=== PATIENT | male | born 1960 | race Caucasian/White ===

== ENCOUNTER 2022-12-01 09:41 | Inpatient (IN) | payer MEDICARE, MEDICAID ==
[~2022-12-01] VITALS: Ht 180.3 cm; Wt 84.1 kg
[2022-12-01] MEDS ORDERED: VENL75CA47 PO (09:54)
[2022-12-01] MEDS ORDERED: VENL50TA2 PO (09:54)
[2022-12-01 10:37] LABS: BASO # 0.1 10^3/uL (0.0-0.2); EOS # 0.2 10^3/uL (0.0-0.5); EOS % 3.5 % (0.0-3.0); HEMATOCRIT 38.8 % (42.0-52.0); HEMOGLOBIN 13.2 g/dl (13.5-17.5); LYMPH # 1.5 10^3/uL (1.5-5.0); LYMPH % 22.4 % (24.0-44.0); MEAN CORPUSCULAR HEMOGLOBIN 31.2 pg (27.0-33.0); MEAN CORPUSCULAR VOLUME 91.7 fl (80.0-96.0); MONO # 0.9 10^3/uL (0.0-0.8); MONO % 13.2 % (2.0-8.0); NEUTROPHILS # 4.1 10^3/uL (1.5-8.5); NEUTROPHILS % 59.6 % (36.0-66.0); PLATELET COUNT, AUTOMATED 336 10^3/uL (150-450); RED BLOOD COUNT 4.23 10^6/uL (4.30-6.10); WHITE BLOOD COUNT 6.9 10^3/uL (4.0-10.0)
[2022-12-01 10:58] LABS: LIPASE 27 U/L (12-53)
[2022-12-01 11:00] LABS: ALBUMIN 3.7 G/DL (3.2-5.2); ALKALINE PHOSPHATASE 97 U/L (46-116); ALT/SGPT 18 U/L (7.0-40); AST/SGOT 25 U/L (<34); BILIRUBIN,DIRECT 0.3 MG/DL (<0.4); BILIRUBIN,TOTAL 0.7 MG/DL (0.3-1.2); BLOOD UREA NITROGEN 8 MG/DL (9-23); CALCIUM LEVEL 8.8 MG/DL (8.3-10.6); CARBON DIOXIDE LEVEL 28 MMOL/L (20-31); CHLORIDE LEVEL 102 MMOL/L (98-107); CREATININE FOR GFR 0.69 MG/DL (0.70-1.30); GLOMERULAR FILTRATION RATE > 60.0 (>49); GLUCOSE, FASTING 91 MG/DL (74-106); SODIUM LEVEL 138 MMOL/L (136-145); TOTAL PROTEIN 6.7 G/DL (5.7-8.2)
[2022-12-01 11:01] LABS: THYROID STIMULATING HORMONE 4.813 uIU/ML (0.55-4.78)
[2022-12-01 11:03] LABS: FREE T4 1.24 NG/DL (0.89-1.76)
[2022-12-01 11:07] LABS: CPK CREATINE PHOSPHOKINASE 269 U/L (46-171); MB/CK RELATIVE INDEX 1.85 (< OR =4)
[2022-12-01 11:49] LABS: RSV AMPLIFICATION NEGATIVE (NEGATIVE)
[2022-12-01 12:15] LABS: CK-MB VALUE MASS 4.1 NG/ML (<3.6)
[2022-12-01 12:16] LABS: MB/CK RELATIVE INDEX 1.59 (< OR =4)
[2022-12-01] MEDS ORDERED: LORazepam 2 MG TAB PO STA (12:46)
[2022-12-01] MEDS ORDERED: NS 1,000 ML IV ONE (12:50)
[2022-12-01 14:46] LABS: APPEARANCE, URINE CLEAR (CLEAR); BACTERIA, URINE AUTO NEGATIVE (NEGATIVE); BILIRUBIN, URINE AUTO NEGATIVE (NEGATIVE); BLOOD, URINE BLOOD NEGATIVE (NEGATIVE); COLOR, URINE YELLOW (YELLOW); GLUCOSE, URINE (UA) AUTO NEGATIVE (NEGATIVE); KETONE, URINE AUTO NEGATIVE (NEGATIVE); LEUKOCYTE ESTERASE, URINE AUTO NEGATIVE (NEGATIVE); NITRITE, URINE AUTO NEGATIVE (NEGATIVE); PROTEIN, URINE AUTO NEGATIVE (NEGATIVE); RBC, URINE AUTO 0 /HPF (0-3); SPECIFIC GRAVITY URINE AUTO 1.009 (1.002-1.035); SQUAMOUS EPITHELIAL CELL UR AU 0 /HPF (0-6); UROBILINOGEN, URINE AUTO 0.2 mg/dL (0.0-2.0); WBC, URINE AUTO 1 /HPF (0-3)
[2022-12-01 15:10] LABS: BARBITURATES URINE NEGATIVE (NEGATIVE); COCAINE METABOLITE URINE NEGATIVE (NEGATIVE); PHENCYCLIDINE URINE NEGATIVE (NEGATIVE)
[2022-12-01 15:11] LABS: METHADONE URINE NEGATIVE (NEGATIVE); OPIATES URINE NEGATIVE (NEGATIVE)
[2022-12-01 15:12] LABS: AMPHETAMINES LEVEL URINE POSITIVE (NEGATIVE); BENZODIAZEPINES URINE POSITIVE (NEGATIVE); CANNABINOIDS URINE POSITIVE (NEGATIVE)
[2022-12-01] MEDS ORDERED: LORazepam 2 MG/ML 1ML VIAL IM STA (16:06)
[2022-12-01] MEDS ORDERED: OLANZapine INTRAMUSCULAR 10MG VIAL IM ONE (16:10)
[2022-12-01] MEDS ORDERED: OLANZapine ORAL DISINTEGRATING TAB 5MG PO ONE (16:30)
[2022-12-01] MEDS ORDERED: IBUPROFEN 400MG TAB PO PRN ×2 (20:30)
[2022-12-01] MEDS ORDERED: ACETAMINOPHEN TAB 650MG DOSE (2X325MG) PO PRN ×2 (20:30)
[2022-12-01] MEDS ORDERED: MOM 30ML SUSPENSION UDC PO PRN ×2 (20:30)
[2022-12-01] MEDS ORDERED: traZODone 50 MG TAB PO PRN ×2 (20:30)
[2022-12-01] MEDS ORDERED: MAALOX 30 ML SUSP *UDC PO PRN ×2 (20:30)
[2022-12-01] MEDS ORDERED: diphenhydrAMINE 25MG CAP PO PRN (20:30)
[2022-12-01 22:03] VITALS: BP 155/97; TEMP 96.7; O2SAT 96
[2022-12-01 23:15] LABS: ETHYL ALCOHOL (ETHANOL) < 0.003 % (0.000-0.010)
[2022-12-01 23:17] LABS: ACETAMINOPHEN LEVEL < 2.0 UG/ML (10.0-20.0); SALICYLATE LEVEL < 3.0 MG/DL (<30)
[2022-12-02 00:20] VITALS: BP 135/100; TEMP 96.2; O2SAT 98
[2022-12-02 06:57] VITALS: TEMP 97.1; O2SAT 98
[2022-12-02] MEDS ORDERED: VENLAFAXINE **XR** 75MG CAPSULE PO SCH (09:00)
[2022-12-02] MEDS ORDERED: VENLAFAXINE 25 MG TAB PO SCH (09:00)
[2022-12-02] MEDS: VENLAFAXINE **XR** 75MG CAPSULE PO SCH (12:48)
[2022-12-02 18:03] VITALS: BP 118/87; TEMP 97.4; O2SAT 100
[2022-12-03 07:04] VITALS: BP 135/82; TEMP 97.7; O2SAT 98
[2022-12-03] MEDS: diphenhydrAMINE 25MG CAP PO PRN (08:05)
[2022-12-03] MEDS: VENLAFAXINE **XR** 75MG CAPSULE PO SCH (08:05)
[2022-12-03] MEDS: NICOTINE 21MG/24HR 1 EA TRANSDERMAL TD PRN (09:18)
[2022-12-03 18:00] VITALS: BP 145/74; TEMP 97
[2022-12-04 06:10] VITALS: BP 131/72; TEMP 97.1; O2SAT 96
[2022-12-04] MEDS: VENLAFAXINE **XR** 75MG CAPSULE PO SCH (08:42)
[2022-12-04] MEDS: NICOTINE 21MG/24HR 1 EA TRANSDERMAL TD PRN (08:43)
[2022-12-04] MEDS: OLANZapine 5 MG TAB PO PRN (10:35)
[2022-12-04 18:00] VITALS: BP 123/66; TEMP 98.4; O2SAT 94
[2022-12-04] MEDS: PRAZOSIN 1 MG CAP PO SCH (21:41)
[2022-12-04] MEDS: QUEtiapine FUMARATE 50MG TAB PO SCH (21:41)
[2022-12-05 06:23] VITALS: BP 145/92; TEMP 97.8; O2SAT 95
[2022-12-05] MEDS: VENLAFAXINE **XR** 75MG CAPSULE PO SCH (09:12)
[2022-12-05] MEDS: NICOTINE 21MG/24HR 1 EA TRANSDERMAL TD PRN (09:15)
[2022-12-05] MEDS: diphenhydrAMINE 25MG CAP PO PRN (11:47)
[2022-12-05] MEDS: OLANZapine 5 MG TAB PO PRN (11:47)
[2022-12-05] MEDS: LIDOCAINE 5% (LIDODERM) PATCH TD SCH (11:48)
[2022-12-05 18:00] VITALS: BP 109/66; TEMP 98.1; O2SAT 93
[2022-12-05] MEDS: QUEtiapine FUMARATE 50MG TAB PO SCH (21:04)
[2022-12-05] MEDS: PRAZOSIN 1 MG CAP PO SCH (21:05)
[2022-12-06 05:59] VITALS: BP 139/93; TEMP 97; O2SAT 95
[2022-12-06] MEDS: LIDOCAINE 5% (LIDODERM) PATCH TD SCH (09:19)
[2022-12-06] MEDS: VENLAFAXINE **XR** 75MG CAPSULE PO SCH (09:19)
[2022-12-06] MEDS: NICOTINE 21MG/24HR 1 EA TRANSDERMAL TD PRN (09:19)
[2022-12-06] MEDS: OLANZapine 5 MG TAB PO PRN (11:39)
[2022-12-06] MEDS: diphenhydrAMINE 25MG CAP PO PRN (13:37)
[2022-12-06] MEDS: GABAPENTIN 100 MG CAP PO SCH ×2 (13:51→20:54)
[2022-12-06 17:54] VITALS: BP 110/67; TEMP 97.3; O2SAT 98
[2022-12-06] MEDS: QUEtiapine FUMARATE 50MG TAB PO SCH (20:54)
[2022-12-06] MEDS: PRAZOSIN 1 MG CAP PO SCH (20:55)
[2022-12-07 06:44] VITALS: BP 134/62; TEMP 97.2; O2SAT 100
[2022-12-07] MEDS: GABAPENTIN 100 MG CAP PO SCH ×2 (08:35→20:55)
[2022-12-07] MEDS: VENLAFAXINE **XR** 75MG CAPSULE PO SCH (08:35)
[2022-12-07] MEDS: LIDOCAINE 5% (LIDODERM) PATCH TD SCH (08:35)
[2022-12-07] MEDS: NICOTINE 21MG/24HR 1 EA TRANSDERMAL TD PRN (08:37)
[2022-12-07] MEDS: OLANZapine 5 MG TAB PO PRN (09:43)
[2022-12-07] MEDS: diphenhydrAMINE 25MG CAP PO PRN (16:19)
[2022-12-07 16:27] VITALS: BP 118/72; TEMP 97.6; O2SAT 95
[2022-12-07 20:54] VITALS: BP 148/82
[2022-12-07 20:55] VITALS: BP 148/82
[2022-12-07] MEDS: PRAZOSIN 1 MG CAP PO SCH (20:55)
[2022-12-07] MEDS: QUEtiapine FUMARATE 50MG TAB PO SCH (20:55)
[2022-12-08 06:48] VITALS: BP 117/71; TEMP 96.9; O2SAT 95
[2022-12-08] MEDS: LIDOCAINE 5% (LIDODERM) PATCH TD SCH (09:00)
[2022-12-08] MEDS: NICOTINE 21MG/24HR 1 EA TRANSDERMAL TD PRN (09:48)
[2022-12-08] MEDS: VENLAFAXINE **XR** 75MG CAPSULE PO SCH (09:49)
[2022-12-08] MEDS: GABAPENTIN 100 MG CAP PO SCH (09:49)
[2022-12-08] MEDS: OLANZapine 5 MG TAB PO PRN (09:54)
[2022-12-08] MEDS ORDERED: GABA-1171 PO (10:30)
[2022-12-08] MEDS ORDERED: LIDO5TD TD (10:30)
[2022-12-08] MEDS ORDERED: NICO21PAT TD (10:30)
[2022-12-08] MEDS ORDERED: VENL75CA47 PO (10:30)
[2022-12-08] MEDS ORDERED: MINI1CAP PO (10:30)
[2022-12-08] MEDS ORDERED: QUET50TA4 PO (10:30)
== END 2022-12-08 12:12 | disposition home or self-care (01) | DRG 882 ==
LOC: EDBD 09:41 → M ED 09:41 → M ED INP 20:27 → M PSY 21:36
PROVIDERS: ADMIT Student in an Organized Health Care Education/Training Program; ATTEND Student in an Organized Health Care Education/Training Program
DX: F43.9 Reaction to severe stress, unspecified (principal); F12.151 Cannabis abuse with psychotic disorder with hallucinations; Z56.0 Unemployment, unspecified; Z79.899 Other long term (current) drug therapy; F32.A Depression, unspecified; M54.50 Low back pain, unspecified

== ENCOUNTER 2023-02-20 18:19 | Emergency (ER) | payer MEDICARE, MEDICAID ==
[~2023-02-20] VITALS: Ht 180.3 cm; Wt 89.9 kg
[~2023-02-20 18:19] MED LIST: GABA-1171 PO; LIDO5TD TD; MINI1CAP PO; NICO21PAT TD; QUET50TA4 PO; VENL50TA2 PO; VENL75CA47 PO
[2023-02-20] MEDS ORDERED: WELLTAB40 PO (18:29)
[2023-02-20] MEDS ORDERED: CYMB1CAP5 PO (18:29)
[2023-02-20 20:36] LABS: HEMATOCRIT 37.2 % (42.0-52.0); HEMOGLOBIN 12.8 g/dl (13.5-17.5); MEAN CORPUSCULAR HEMOGLOBIN 30.9 pg (27.0-33.0); MEAN CORPUSCULAR HGB CONC 34.4 g/dl (32.0-36.5); MEAN CORPUSCULAR VOLUME 89.9 fl (80.0-96.0); PLATELET COUNT, AUTOMATED 371 10^3/uL (150-450); RED BLOOD COUNT 4.14 10^6/uL (4.30-6.10); WHITE BLOOD COUNT 6.8 10^3/uL (4.0-10.0)
[2023-02-20 20:55] LABS: AMPHETAMINES LEVEL URINE NEGATIVE (NEGATIVE); BARBITURATES URINE NEGATIVE (NEGATIVE); PHENCYCLIDINE URINE NEGATIVE (NEGATIVE)
[2023-02-20 20:56] LABS: BENZODIAZEPINES URINE NEGATIVE (NEGATIVE); CANNABINOIDS URINE NEGATIVE (NEGATIVE); COCAINE METABOLITE URINE NEGATIVE (NEGATIVE); METHADONE URINE NEGATIVE (NEGATIVE); OPIATES URINE NEGATIVE (NEGATIVE)
[2023-02-20 20:57] LABS: ETHYL ALCOHOL (ETHANOL) < 0.003 % (0.000-0.010)
[2023-02-20 20:59] LABS: ACETAMINOPHEN LEVEL < 2.0 UG/ML (10.0-20.0); ALBUMIN 3.8 G/DL (3.2-5.2); ALKALINE PHOSPHATASE 85 U/L (46-116); ALT/SGPT 34 U/L (7.0-40); AST/SGOT 28 U/L (<34); BILIRUBIN,DIRECT 0.3 MG/DL (<0.4); BILIRUBIN,TOTAL 0.7 MG/DL (0.3-1.2); BLOOD UREA NITROGEN 17 MG/DL (9-23); CALCIUM LEVEL 8.9 MG/DL (8.3-10.6); CARBON DIOXIDE LEVEL 27 MMOL/L (20-31); CHLORIDE LEVEL 105 MMOL/L (98-107); CREATININE FOR GFR 0.88 MG/DL (0.70-1.30); GLOMERULAR FILTRATION RATE > 60.0 (>49); GLUCOSE, FASTING 91 MG/DL (74-106); SALICYLATE LEVEL < 3.0 MG/DL (<30); SODIUM LEVEL 140 MMOL/L (136-145)
[2023-02-20 21:02] LABS: THYROID STIMULATING HORMONE 8.534 uIU/ML (0.55-4.78)
[2023-02-20 23:44] LABS: APPEARANCE, URINE CLEAR (CLEAR); BACTERIA, URINE AUTO NEGATIVE (NEGATIVE); BILIRUBIN, URINE AUTO NEGATIVE (NEGATIVE); BLOOD, URINE BLOOD NEGATIVE (NEGATIVE); COLOR, URINE YELLOW (YELLOW); GLUCOSE, URINE (UA) AUTO NEGATIVE (NEGATIVE); KETONE, URINE AUTO NEGATIVE (NEGATIVE); LEUKOCYTE ESTERASE, URINE AUTO NEGATIVE (NEGATIVE); NITRITE, URINE AUTO NEGATIVE (NEGATIVE); PROTEIN, URINE AUTO NEGATIVE (NEGATIVE); RBC, URINE AUTO 0 /HPF (0-3); SPECIFIC GRAVITY URINE AUTO 1.011 (1.002-1.035); SQUAMOUS EPITHELIAL CELL UR AU 0 /HPF (0-6); UROBILINOGEN, URINE AUTO 0.2 mg/dL (0.0-2.0); WBC, URINE AUTO 3 /HPF (0-3)
[2023-02-21] MEDS ORDERED: LEVOTHYROXINE 25MCG TABLET (0.025MG) PO SCH (06:00)
[2023-02-21] MEDS ORDERED: BUPR150T12 PO (06:13)
[2023-02-21] MEDS ORDERED: LEVO25TA5 PO (06:15)
[2023-02-21] MEDS ORDERED: VITA100093 PO (06:15)
[2023-02-21] MEDS ORDERED: GABA-284 PO (06:15)
[2023-02-21] MEDS ORDERED: AMLO1TAB24 PO (06:15)
[2023-02-21] MEDS ORDERED: QUET100T2 PO (06:15)
[2023-02-21] MEDS ORDERED: PRAZ1CAP PO (06:15)
[2023-02-21] MEDS ORDERED: NAPR-885 PO (06:15)
[2023-02-21] MEDS ORDERED: HOME MED LIST COMPLETE! XX SCH (06:20)
[2023-02-21] MEDS ORDERED: GABAPENTIN 400MG CAP PO SCH (09:00)
[2023-02-21] MEDS ORDERED: GABAPENTIN 100 MG CAP PO SCH (09:00)
[2023-02-21] MEDS ORDERED: amLODIPine 5 MG TAB PO SCH (09:00)
[2023-02-21] MEDS ORDERED: buPROPion **XL** TABLET 150MG (WELLBUTRIN XL) PO SCH (09:00)
[2023-02-21] MEDS: DULoxetine 30MG CAPSULE (CYMBALTA) PO SCH ×2 (09:24→14:31)
[2023-02-21 09:27] VITALS: BP 117/77
[2023-02-21 12:27] VITALS: BP 136/91; TEMP 97.2; O2SAT 98
[2023-02-21] MEDS ORDERED: QUEtiapine FUMARATE 100 MG TAB PO SCH (21:00)
[2023-02-21] MEDS ORDERED: QUEtiapine FUMARATE 50MG TAB PO SCH (21:00)
[2023-02-21] MEDS ORDERED: PRAZOSIN 1 MG CAP PO SCH (21:00)
== END 2023-02-21 15:47 | disposition home or self-care (01) ==
LOC: M ED 18:19
DX: F19.14 Other psychoactive substance abuse with psychoactive substance-induced mood disorder (principal); F32.A Depression, unspecified; F17.200 Nicotine dependence, unspecified, uncomplicated

== ENCOUNTER 2024-12-17 16:43 | Emergency (ER) | payer MEDICARE, MEDICAID ==
[~2024-12-17] VITALS: Ht 177.8 cm; Wt 84.9 kg
[~2024-12-17 16:43] MED LIST changes: +AMLO1TAB24 PO; +BUPR150T12 PO; +CYMB1CAP5 PO; +GABA-284 PO; +LEVO25TA5 PO; +NAPR-885 PO; +PRAZ1CAP PO; +QUET100T2 PO; +VITA100093 PO; +WELLTAB40 PO
[2024-12-17 20:44] LABS: PLATELET COUNT, AUTOMATED 365 10^3/uL (150-450)
[2024-12-17 21:25] LABS: ETHYL ALCOHOL (ETHANOL) < 0.003 % (0.000-0.010)
[2024-12-17 21:26] LABS: AMPHETAMINES LEVEL URINE POSITIVE (NEGATIVE); BARBITURATES URINE NEGATIVE (NEGATIVE); BENZODIAZEPINES URINE NEGATIVE (NEGATIVE); CANNABINOIDS URINE POSITIVE (NEGATIVE); COCAINE METABOLITE URINE NEGATIVE (NEGATIVE); METHADONE URINE NEGATIVE (NEGATIVE); OPIATES URINE NEGATIVE (NEGATIVE); PHENCYCLIDINE URINE NEGATIVE (NEGATIVE)
[2024-12-17 21:27] LABS: ALT/SGPT 22 U/L (7.0-40); AST/SGOT 19 U/L (<34); CALCIUM LEVEL 10.1 MG/DL (8.3-10.6); CARBON DIOXIDE LEVEL 31 MMOL/L (20-31); CHLORIDE LEVEL 100 MMOL/L (98-107); CREATININE FOR GFR 0.83 MG/DL (0.70-1.30); GLOMERULAR FILTRATION RATE > 90.0 (>49); POTASSIUM SERUM 4.5 MMOL/L (3.5-5.1); SALICYLATE LEVEL < 3.0 MG/DL (<30); SODIUM LEVEL 139 MMOL/L (136-145)
[2024-12-17 21:28] LABS: MAGNESIUM LEVEL 2.3 MG/DL (1.8-2.4)
[2024-12-17 21:30] LABS: CPK CREATINE PHOSPHOKINASE 71.0 U/L (46-171)
[2024-12-18] MEDS ORDERED: PROP20TA72 PO (09:59)
[2024-12-18] MEDS ORDERED: RISP-105 PO (10:01)
[2024-12-18] MEDS ORDERED: TAMS1CAP17 PO (10:02)
[2024-12-18] MEDS ORDERED: VENL150C43 PO (10:02)
[2024-12-18] MEDS ORDERED: AMPH1CAP5 PO (10:03)
[2024-12-18] MEDS ORDERED: HOME MED LIST COMPLETE! XX SCH (10:05)
[2024-12-18] MEDS ORDERED: PROPRANOLOL 20 MG TAB PO PRN (11:35)
[2024-12-18] MEDS: VENLAFAXINE **XR** 75MG CAPSULE PO SCH (11:44)
[2024-12-18] MEDS: TAMSULOSIN 0.4 MG CAP PO SCH (11:44)
[2024-12-18] MEDS: DEXTROAMPHETAMINE/AMPHETAMINE 5 MG *ER* CAPSULE PO SCH (11:45)
[2024-12-18] MEDS ORDERED: OVERDOSE RESCUE KIT XX SCH (13:35)
[2024-12-18 14:18] VITALS: BP 165/93; TEMP 97; O2SAT 97
[2024-12-18] MEDS ORDERED: PRAZOSIN 1 MG CAP PO SCH (21:00)
[2024-12-18] MEDS ORDERED: risperiDONE 0.5 MG TAB PO SCH (21:00)
== END 2024-12-18 14:28 | disposition home or self-care (01) ==
LOC: M ED 16:43
DX: F25.9 Schizoaffective disorder, unspecified (principal); I10 Essential (primary) hypertension; I25.119 Atherosclerotic heart disease of native coronary artery with unspecified angina pectoris; B18.2 Chronic viral hepatitis C; F17.210 Nicotine dependence, cigarettes, uncomplicated; Z79.899 Other long term (current) drug therapy

== ENCOUNTER 2024-12-24 12:04 | Emergency (ER) | payer MEDICARE, MEDICAID ==
[~2024-12-24] VITALS: Ht 177.8 cm; Wt 85.3 kg
[~2024-12-24 12:04] MED LIST changes: +AMPH1CAP5 PO; +PROP20TA72 PO; +RISP-105 PO; +TAMS1CAP17 PO; +VENL150C43 PO
[2024-12-24 12:06] VITALS: BP 131/91; TEMP 97.7; O2SAT 99
[2024-12-25] MEDS ORDERED: HYDR50CA2 PO (14:15)
== END 2024-12-24 14:58 | disposition left against medical advice (07) ==
LOC: M ED 12:04
DX: Z53.21 Procedure and treatment not carried out due to patient leaving prior to being seen by health care provider (principal)

== ENCOUNTER 2024-12-25 10:52 | Inpatient (IN) | payer MEDICARE, MEDICAID ==
[~2024-12-25] VITALS: Ht 177.8 cm; Wt 85.4 kg
[2024-12-25] MEDS: NICOTINE 14 MG/24 HR TRANSDERMAL TD SCH (09:00)
[2024-12-25 11:35] LABS: PLATELET COUNT, AUTOMATED 342 10^3/uL (150-450)
[2024-12-25] MEDS: NICOTINE 21 MG/24 HR 1 EA TRANSDERMAL TD ONE (11:56)
[2024-12-25 12:04] LABS: ETHYL ALCOHOL (ETHANOL) < 0.003 % (0.000-0.010)
[2024-12-25 12:06] LABS: SALICYLATE LEVEL < 3.0 MG/DL (<30)
[2024-12-25 12:11] LABS: BARBITURATES URINE NEGATIVE (NEGATIVE); COCAINE METABOLITE URINE NEGATIVE (NEGATIVE); METHADONE URINE NEGATIVE (NEGATIVE); OPIATES URINE NEGATIVE (NEGATIVE); PHENCYCLIDINE URINE NEGATIVE (NEGATIVE)
[2024-12-25 12:12] LABS: BENZODIAZEPINES URINE NEGATIVE (NEGATIVE)
[2024-12-25 12:21] LABS: ALT/SGPT 27 U/L (7.0-40); AST/SGOT 23 U/L (<34); CALCIUM LEVEL 8.6 MG/DL (8.3-10.6); CARBON DIOXIDE LEVEL 26 MMOL/L (20-31); CHLORIDE LEVEL 100 MMOL/L (98-107); CREATININE FOR GFR 0.61 MG/DL (0.70-1.30); GLOMERULAR FILTRATION RATE > 90.0 (>49); POTASSIUM SERUM 3.7 MMOL/L (3.5-5.1); SODIUM LEVEL 138 MMOL/L (136-145)
[2024-12-25 12:21] LABS: AMPHETAMINES LEVEL URINE POSITIVE (NEGATIVE); CANNABINOIDS URINE POSITIVE (NEGATIVE)
[2024-12-25] MEDS ORDERED: HYDR50CA2 PO (14:15)
[2024-12-25] MEDS ORDERED: HOME MED LIST COMPLETE! XX SCH (14:15)
[2024-12-25] MEDS ORDERED: MAALOX 30 ML SUSP *UDC PO PRN (14:50)
[2024-12-25] MEDS ORDERED: OLANZapine 5 MG TAB PO PRN (14:50)
[2024-12-25] MEDS ORDERED: ACETAMINOPHEN 325 MG TAB PO PRN (14:50)
[2024-12-25] MEDS ORDERED: LORazepam 1 MG TAB PO PRN (14:50)
[2024-12-25] MEDS ORDERED: IBUPROFEN 400 MG TAB PO PRN (14:50)
[2024-12-25] MEDS ORDERED: MOM 30 ML SUSPENSION UDC PO PRN (14:50)
[2024-12-25] MEDS ORDERED: traZODone 50 MG TAB PO PRN (14:50)
[2024-12-25] MEDS ORDERED: HALOPERIDOL 5 MG TAB PO PRN (14:50)
[2024-12-25] MEDS: VENLAFAXINE **XR** 75MG CAPSULE PO SCH (15:30)
[2024-12-25 16:30] VITALS: BP 138/91; TEMP 97.7; O2SAT 96
[2024-12-25] MEDS: RISPERIDONE 1 MG TAB PO SCH (21:18)
[2024-12-25] MEDS: PRAZOSIN 1 MG CAP PO SCH (21:18)
[2024-12-26 06:30] VITALS: BP 136/86; TEMP 98; O2SAT 95
[2024-12-26] MEDS: TAMSULOSIN 0.4 MG CAP PO SCH (08:03)
[2024-12-26] MEDS: PROPRANOLOL 20 MG TAB PO PRN (12:26)
[2024-12-26] MEDS: DEXTROAMPHETAMINE/AMPHETAMINE 5 MG *ER* CAPSULE PO SCH (13:01)
[2024-12-26 14:38] VITALS: BP 138/95; TEMP 97; O2SAT 98
[2024-12-27 06:28] VITALS: BP 113/68; TEMP 97.1; O2SAT 98
[2024-12-27 15:03] VITALS: BP 124/83; TEMP 97; O2SAT 98
[2024-12-27] MEDS: OLANZapine 5 MG TAB PO SCH (21:45)
[2024-12-28 06:28] VITALS: BP 124/88; TEMP 97.6; O2SAT 96
[2024-12-28] MEDS: OLANZapine 10 MG TAB PO SCH (20:35)
[2024-12-29] MEDS: BENZOCAINE 10% 9 GM TUBE TOP PRN (10:09)
[2024-12-29 15:17] VITALS: BP 128/83; TEMP 97.4; O2SAT 97
[2024-12-30 06:28] VITALS: BP 133/81; TEMP 97.1; O2SAT 96
[2024-12-30 15:01] VITALS: BP 124/79; TEMP 97.7; O2SAT 98
[2024-12-31 06:36] VITALS: BP 137/82; TEMP 97.4; O2SAT 94
[2024-12-31 16:15] VITALS: BP 130/84; TEMP 97.6; O2SAT 97
[2025-01-01 06:19] VITALS: BP 142/80; TEMP 97; O2SAT 100
[2025-01-01 15:42] VITALS: BP 123/79; TEMP 97.8; O2SAT 97
[2025-01-01 20:22] VITALS: BP 123/79
[2025-01-02 06:34] VITALS: BP 111/63; TEMP 97.6; O2SAT 96
[2025-01-02] MEDS ORDERED: PROP20TA72 PO (08:06)
[2025-01-02] MEDS ORDERED: AMPH1CAP5 PO (08:06)
[2025-01-02] MEDS ORDERED: OLAN1TAB20 PO (08:06)
[2025-01-02] MEDS ORDERED: NICO14PA TD (08:06)
[2025-01-02] MEDS ORDERED: VENL150C43 PO (08:06)
[2025-01-02] MEDS ORDERED: TAMS1CAP17 PO (08:06)
[2025-01-02] MEDS ORDERED: HYDR50CA2 PO (08:06)
[2025-01-02] MEDS ORDERED: PRAZ1CAP PO (08:06)
[2025-01-02] MEDS ORDERED: Benzocaine Gel TOP (08:06)
== END 2025-01-02 10:30 | disposition home or self-care (01) | DRG 885 ==
LOC: M ED 10:52 → M ED INP 14:49 → M PSY 16:06
PROVIDERS: ADMIT Internal Medicine; ATTEND Internal Medicine
DX: F25.0 Schizoaffective disorder, bipolar type (principal); R45.851 Suicidal ideations; Z59.00 Homelessness unspecified; F12.90 Cannabis use, unspecified, uncomplicated; F43.10 Post-traumatic stress disorder, unspecified; I10 Essential (primary) hypertension; N40.0 Benign prostatic hyperplasia without lower urinary tract symptoms; F17.200 Nicotine dependence, unspecified, uncomplicated; Z79.899 Other long term (current) drug therapy; Z71.51 Drug abuse counseling and surveillance of drug abuser; Z91.51 Personal history of suicidal behavior

== ENCOUNTER 2025-03-03 05:03 | Inpatient (IN) | payer MEDICARE, MEDICAID ==
[~2025-03-03] VITALS: Ht 177.8 cm; Wt 86.8 kg
[~2025-03-03 05:03] MED LIST changes: +Benzocaine Gel TOP; +HYDR50CA2 PO; +NICO14PA TD; +OLAN1TAB20 PO; +TAMS-18 PO
[2025-03-03 08:06] LABS: PLATELET COUNT, AUTOMATED 372 10^3/uL (150-450)
[2025-03-03 08:35] LABS: ETHYL ALCOHOL (ETHANOL) < 0.003 % (0.000-0.010)
[2025-03-03 08:37] LABS: SALICYLATE LEVEL < 3.0 MG/DL (<30)
[2025-03-03 08:46] LABS: ALT/SGPT 29 U/L (7.0-40); AST/SGOT 42 U/L (<34); CALCIUM LEVEL 9.7 MG/DL (8.3-10.6); CARBON DIOXIDE LEVEL 28 MMOL/L (20-31); CHLORIDE LEVEL 98 MMOL/L (98-107); CREATININE FOR GFR 0.81 MG/DL (0.70-1.30); GLOMERULAR FILTRATION RATE > 90.0 (>49); POTASSIUM SERUM 4.6 MMOL/L (3.5-5.1); SODIUM LEVEL 134 MMOL/L (136-145)
[2025-03-03 10:02] LABS: BARBITURATES URINE NEGATIVE (NEGATIVE); BENZODIAZEPINES URINE NEGATIVE (NEGATIVE); COCAINE METABOLITE URINE NEGATIVE (NEGATIVE); METHADONE URINE NEGATIVE (NEGATIVE); OPIATES URINE NEGATIVE (NEGATIVE); PHENCYCLIDINE URINE NEGATIVE (NEGATIVE)
[2025-03-03 10:06] LABS: AMPHETAMINES LEVEL URINE POSITIVE (NEGATIVE); CANNABINOIDS URINE POSITIVE (NEGATIVE)
[2025-03-03] MEDS: VENLAFAXINE **XR** 75MG CAPSULE PO ONE (10:20)
[2025-03-03] MEDS: TAMSULOSIN 0.4 MG CAP PO ONE (10:20)
[2025-03-03] MEDS ORDERED: MAALOX 30 ML SUSP *UDC PO PRN (13:25)
[2025-03-03] MEDS ORDERED: traZODone 50 MG TAB PO PRN (13:25)
[2025-03-03] MEDS ORDERED: MOM 30 ML SUSPENSION UDC PO PRN (13:25)
[2025-03-03] MEDS ORDERED: HALOPERIDOL 5 MG TAB PO PRN (13:25)
[2025-03-03] MEDS ORDERED: IBUPROFEN 400 MG TAB PO PRN (13:25)
[2025-03-03] MEDS ORDERED: ACETAMINOPHEN 325 MG TAB PO PRN (13:25)
[2025-03-03] MEDS ORDERED: OLANZapine 5 MG TAB PO PRN (13:25)
[2025-03-03] MEDS ORDERED: LORazepam 1 MG TAB PO PRN (13:25)
[2025-03-03] MEDS: NICOTINE 14 MG/24 HR TRANSDERMAL TD SCH (13:46)
[2025-03-03 14:22] VITALS: BP 157/96; TEMP 97.1; O2SAT 97
[2025-03-04 06:32] VITALS: BP 139/73; TEMP 98; O2SAT 97
[2025-03-04] MEDS ORDERED: HOME MED LIST COMPLETE! XX SCH (06:35)
[2025-03-04] MEDS: VENLAFAXINE **XR** 75MG CAPSULE PO SCH (09:57)
[2025-03-04] MEDS: TAMSULOSIN 0.4 MG CAP PO SCH (10:00)
[2025-03-04] MEDS ORDERED: TAMSULOSIN 0.4 MG CAP PO SCH ×2 (10:25→21:00)
[2025-03-04 15:35] VITALS: BP 134/60; TEMP 98.6; O2SAT 98
[2025-03-05 06:30] VITALS: BP 146/85; TEMP 97.2; O2SAT 96
[2025-03-05 15:13] VITALS: BP 138/90; TEMP 97.3; O2SAT 98
[2025-03-05] MEDS: RAMELTEON 8 MG TAB PO SCH (20:29)
[2025-03-06 06:35] VITALS: BP 132/65; TEMP 97; O2SAT 97
[2025-03-06] MEDS: DEXTROAMPHETAMINE/AMPHETAMINE 5 MG *ER* CAPSULE PO ONE (10:04)
[2025-03-06 15:31] VITALS: BP 139/92; TEMP 97.4; O2SAT 95
[2025-03-07 06:57] VITALS: BP 145/87; TEMP 97.4; O2SAT 97
[2025-03-07] MEDS: DEXTROAMPHETAMINE/AMPHETAMINE 5 MG *ER* CAPSULE PO SCH (08:29)
[2025-03-07 15:52] VITALS: BP 125/73; TEMP 97.6; O2SAT 95
[2025-03-08] MEDS: CARIPRAZINE 3MG CAPSULE PO SCH (08:03)
[2025-03-08] MEDS: VENLAFAXINE **XR** 75MG CAPSULE PO SCH (08:03)
[2025-03-09 07:12] VITALS: BP 130/95; TEMP 96.9; O2SAT 99
[2025-03-10 16:00] VITALS: BP 101/60; TEMP 97.1; O2SAT 99
[2025-03-11 06:39] VITALS: BP 142/99; TEMP 96.8; O2SAT 95
[2025-03-11 15:19] VITALS: BP 133/86; TEMP 98.2; O2SAT 96
[2025-03-12 06:19] VITALS: BP 126/85; TEMP 97.4; O2SAT 98
[2025-03-12 18:17] VITALS: BP 122/83; TEMP 97.4; O2SAT 96
[2025-03-13 06:21] VITALS: BP 114/58; TEMP 97.8; O2SAT 96
[2025-03-13 18:26] VITALS: BP 129/81; TEMP 97.3; O2SAT 97
[2025-03-14 07:01] VITALS: BP 107/68; TEMP 96.9; O2SAT 98
[2025-03-15 06:48] VITALS: BP 121/84; TEMP 96.6; O2SAT 95
[2025-03-15] MEDS ORDERED: VRAY3CAP PO (07:00)
[2025-03-15] MEDS ORDERED: VENL75CA47 PO (07:00)
== END 2025-03-15 10:08 | disposition home or self-care (01) | DRG 885 ==
LOC: M ED 05:03 → M ED INP 13:22 → M PSY 14:18
PROVIDERS: ADMIT Internal Medicine; ATTEND Psychiatry & Neurology Psychiatry
DX: F25.9 Schizoaffective disorder, unspecified (principal); F90.9 Attention-deficit hyperactivity disorder, unspecified type; F12.10 Cannabis abuse, uncomplicated; F17.210 Nicotine dependence, cigarettes, uncomplicated; Z91.51 Personal history of suicidal behavior; Z79.899 Other long term (current) drug therapy; Z87.820 Personal history of traumatic brain injury; N40.0 Benign prostatic hyperplasia without lower urinary tract symptoms